=== PATIENT | male | born 1960 | race Caucasian/White ===

== ENCOUNTER 2023-12-04 08:05 | Day surgery (SDC) | payer BC ==
[~2023-12-04] VITALS: Ht 182.9 cm; Wt 87.8 kg
[2023-12-04] VITALS (14 sets, daily range): BP systolic 139–160; BP diastolic 73–97; PULSE 78–100; RESP 9–20; TEMP 98.2; O2SAT 93–99
[~2023-12-04 08:05] MED LIST: ALBU8HFA INH; FLO44IN INH; IPRA3AMP9 INH; LIDOcaine 1% w/EPI 1:100,000 inj. MDV 50 ML VIAL ONE; albuterol 2.5 MG/3 ML nebule NEB ONE; cefazolin 2gm/D5W 100mL 100 ML IV ONE; cocaine 4% topical solution 4ml bottle ONE; epiNEPHrine 1 mg/ml 30ml MDV ONE; famotidine 20mg tablet PO ONE; mupirocin 2% ointment 22GM ONE; oxymetazoline 15 ML nasal spray NS ONE; ringers solution, lacted 1,000 ML IV SCH; tranexamic acid 100mg/ml inj. ONE; tranexamic acid inj. 1,000 MG in normal saline IV soln 100ML IV ONE
[2023-12-04] MEDS ORDERED: ondansetron/PF 4mg/2ml inj IV PRN (08:35)
[2023-12-04] MEDS ORDERED: morphine 4 MG/ML inj SYRINge IV PRN (08:35)
[2023-12-04] MEDS ORDERED: enalaprilat dihydrate 2.5mg/2ml vial IV PRN (08:35)
[2023-12-04] MEDS ORDERED: meperidine/PF 25mg/ml syringe IV PRN ×3 (08:35)
[2023-12-04] MEDS ORDERED: proCHLORperazine 10 MG/2 ml inj IV PRN (08:35)
[2023-12-04] MEDS ORDERED: ringers solution, lacted 1,000 ML IV SCH (08:35)
[2023-12-04] MEDS ORDERED: morphine 2 MG/ML inj. syringe IV PRN (08:35)
[2023-12-04] MEDS ORDERED: labetalol 20mg/4ml (5mg/ml) syringe IV PRN (08:35)
[2023-12-04] MEDS ORDERED: cocaine 4% topical solution 4ml bottle TP ONE (09:00)
[2023-12-04] MEDS ORDERED: epiNEPHrine 1 mg/ml 30ml MDV SQ ONE (09:00)
[2023-12-04] MEDS ORDERED: mupirocin 2% cream 15gm TP ONE (09:00)
[2023-12-04] MEDS ORDERED: oxymetazoline 15 ML nasal spray NS ONE (09:00)
[2023-12-04] MEDS ORDERED: albuterol 2.5 MG/3 ML nebule NEB ONE (09:05)
[2023-12-04] MEDS ORDERED: LIDOcaine 2% (20mg/ml) 5ml vial ONE (09:20)
[2023-12-04] MEDS ORDERED: propofol inj 20 ML IV ONE (09:20)
[2023-12-04] MEDS ORDERED: fentaNYL/PF 50MCG/1 ML 2ML syringe ONE (09:20)
[2023-12-04] MEDS ORDERED: midazolam 1 mg/ML 2ml injection ONE (09:20)
[2023-12-04] MEDS ORDERED: sevoflurane 250ml liquid IH ONE (09:45)
[2023-12-04] MEDS ORDERED: meperidine/PF 50mg/ml syringe ONE (10:42)
[2023-12-04] MEDS ORDERED: dexamethasone sod phosphate 4mg/ml inj. PO ONE (11:25)
[2023-12-04] MEDS ORDERED: ondansetron/PF 4mg/2ml inj ONE (11:59)
[2023-12-04] MEDS ORDERED: salt irrigation nasal spray 45 ML SPRAY NS SCH (13:00)
== END 2023-12-04 13:48 | disposition home or self-care (01) ==
LOC: PAS 08:05
PROVIDERS: ATTEND Otolaryngology
DX: J34.2 Deviated nasal septum (principal); J34.3 Hypertrophy of nasal turbinates; J32.8 Other chronic sinusitis; J33.8 Other polyp of sinus; Z87.891 Personal history of nicotine dependence; Z98.890 Other specified postprocedural states; Z79.899 Other long term (current) drug therapy
CPT/HCPCS: 30140; 30520; 31259; 31267; 31276; 61782; 82948; 93005; 94640; 94760; A6402; J0171; J0690; J1100; J2175; J2250; J2405; J2704; J3010; J3490; J7030; J7050; J7120; Z7506; Z7508; Z7512; A4618; A7000